=== PATIENT | female | born 1970 | race Caucasian/White ===

== ENCOUNTER 2020-05-22 16:14 | Emergency (ER) | payer OTHER ==
[2020-05-22] MEDS ORDERED: Take Home: Sulfamethoxazole/Trimethoprim 800-160 MG Tab, 2 Tab Pack PO ONE (16:42)
--- NOTE | 2020-05-22 16:42 | EDM.PDOC ---
ED HPI GENERAL MEDICAL PROBLEM - General Chief Complaint: Genitourinary Problem Stated Complaint: ER Time Seen by Provider: 05/22/20 16:30 Source of Information: Reports: Patient - History of Present Illness INITIAL COMMENTS - FREE TEXT/NARRATIVE: Lisa is a 50 y/o female who comes to the ER with complaints of dysuria. 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 She reports urgency and going in small amounts of urine. She tried some OTC anti-itch cream, but that has not helped at all. She has had UTIs in the past and this feels very much the same. Perineal Area Pain Score (Numeric/FACES): 5 - Related Data Allergies Allergy/AdvReac Type Severity Reaction Status Date / Time No Known Allergies Allergy Verified 05/22/20 16:34 Home Meds: Home Meds Fluconazole 150 mg PO ONETIME #2 tablet 05/22/20 [Rx] Sulfamethoxazole/Trimethoprim [Bactrim Ds Tablet] 1 each PO BID 5 Days #10 tablet 05/22/20 [Rx] Past Medical History Cardiovascular History: Reports: Blood Clots/VTE/DVT Social & Family History - Tobacco Use Smoking Status *Q: Never Smoker Review of Systems - Review of Systems Review Of Systems: See Below Constitutional: Reports: No Symptoms Eyes: Reports: No Symptoms Ears: Reports: No Symptoms Nose: Reports: No Symptoms Mouth/Throat: Reports: No Symptoms Respiratory: Reports: No Symptoms Cardiovascular: Reports: No Symptoms GI/Abdominal: Reports: No Symptoms Genitourinary: Reports: Dysuria, Painful Urination Musculoskeletal: Reports: No Symptoms Skin: Reports: No Symptoms Neurological: Reports: No Symptoms Psychiatric: Reports: No Symptoms ED EXAM, GENERAL - Physical Exam Exam: See Below Exam Limited By: No Limitations General Appearance: Alert, WD/WN, No Apparent Distress (Adult female.) Ears: Hearing Grossly Normal Nose: Normal Inspection Throat/Mouth: Normal Lips, Normal Voice Head: Atraumatic, Normocephalic Neck: Normal Inspection Respiratory/Chest: No Respiratory Distress, Lungs Clear, Chest Non-Tender Cardiovascular: Normal Peripheral Pulses, Regular Rate, Rhythm, No Murmur GI/Abdominal: Normal Bowel Sounds, Soft, No Organomegaly, Other (Obesity hinders exam) (Female) Exam: Deferred Rectal (Female) Exam: Deferred Back Exam: Normal Inspection. No: CVA Tenderness (L), CVA Tenderness (R) Extremities: Normal Inspection, Normal Capillary Refill Neurological: Alert, Oriented, CN II-XII Intact, Normal Cognition, No Motor/Sensory Deficits Psychiatric: Normal Affect, Normal Mood Skin Exam: Warm, Dry, Intact, Normal Color, No Rash Course - Vital Signs Text/Narrative:: The patient was seen by the COMPARATIVE SOCIOLOGY PROFESSOR. UA POC was done. 1645 UA results reviewed. Note +nitrates and moderate leukocyte es. Will treat with Bactrim DS. Patient requires antifungal when on abx, will prescribe fluconazole. She was given discharge instructions and left the ER in stable condition. Last Recorded V/S: Last Vital Signs Temp 36.2 C 05/22/20 16:20 Pulse 119 H 05/22/20 16:20 Resp 16 05/22/20 16:20 BP 147/91 H 05/22/20 16:20 Pulse Ox 96 05/22/20 16:20 - Orders/Labs/Meds Orders: Active Orders 24 hr Category Date Time Status MICRO URINE FOR POC DIPSTICK [POC] Stat Lab 05/22/20 16:35 Ordered Labs: POC UA Blood Lg Protein 30 Nitrates + Leuk Es Mod Departure - Departure Time of Disposition: 16:42 Disposition: Home, Self-Care 01 Condition: Good Clinical Impression: UTI (urinary tract infection) Qualifiers: Urinary tract infection type: acute cystitis Hematuria presence: with hematuria Qualified Code(s): N30.01 - Acute cystitis with hematuria - Discharge Information *PRESCRIPTION DRUG MONITORING PROGRAM REVIEWED*: Not Applicable *COPY OF PRESCRIPTION DRUG MONITORING REPORT IN PATIENT LETICIA: Not Applicable Prescriptions: Sulfamethoxazole/Trimethoprim [Bactrim Ds Tablet] 1 each PO BID 5 Days #10 tablet Fluconazole 150 mg PO ONETIME #2 tablet Instructions: Urinary Tract Infection, Adult, Infection Prevention in the Home Additional Instructions: -Bactrim DS 1 tablet oral 2x daily for 7 days #4(ER)#10(Rx) -Fluconazole 150mg oral once for antifungal sx related to antibiotic use. May repeat dose in 3 days if symptoms are not better. #2(Rx) -Obtain over the counter Urinary Pain Relief Tablets (Similar to AZO) take 1 tablet oral every 6-8 hours as needed for bladder pain. This will turn your urine a bright orange color and will resole when the infection is gone. (OTC med) -Drink plenty of water. 1-2 liters of water daily are encouraged. -If your symptoms are not improving, follow up with an Outpatient Clinic or return to the nearest ER. Sepsis Event Note (ED) - Evaluation Sepsis Screening Result: No Definite Risk - Focused Exam Vital Signs: Vital Signs Temp Pulse Resp BP Pulse Ox 05/22/20 16:20 36.2 C 119 H 16 147/91 H 96 - My Orders Last 24 Hours: My Active Orders 05/22/20 16:35 MICRO URINE FOR POC DIPSTICK [POC] Stat - Assessment/Plan Last 24 Hours: My Active Orders 05/22/20 16:35 MICRO URINE FOR POC DIPSTICK [POC] Stat
== END 2020-05-22 16:56 | disposition home or self-care (01) ==
LOC: VM.ED 16:14
DX: N30.01 Acute cystitis with hematuria (principal); E66.9 Obesity, unspecified
CPT/HCPCS: 81001; 99283; A9270; 81002; 81015; 99284